=== PATIENT | male | born 1965 | race Caucasian/White ===

== ENCOUNTER → 2024-05-08 | Outpatient (CLI) | payer MEDICARE ==
[2024-05-08 12:01] LABS: Basophils % (A) 1 %; Eosinophils # (A) 0.2 k/uL (0-0.7); Eosinophils % (A) 5 %; HCT 45.7 % (39.0-53.0); HGB 14.8 gm/dL (13.0-17.5); Lymphocytes # (A) 0.9 k/uL (1.0-4.8); Lymphocytes % (A) 24 %; MCH 31.4 pg (25.0-35.0); MCHC 32.4 g/dL (31.0-37.0); MCV 96.8 fL (80.0-100.0); Monocytes # (A) 0.3 k/uL (0-1.0); Monocytes % (A) 8 %; Neutrophils # (A) 2.4 k/uL (1.3-7.7); Neutrophils % (A) 62 %; Platelet Count 305 k/uL (150-450); RBC 4.72 m/uL (4.30-5.90); RDW 12.5 % (11.5-15.5); WBC 3.8 k/uL (3.8-10.6)
== END | disposition home or self-care (01) ==
LOC: LABWHC1 10:58
PROVIDERS: ATTEND Family Medicine
DX: Z12.5 Encounter for screening for malignant neoplasm of prostate (principal); D72.819 Decreased white blood cell count, unspecified
CPT/HCPCS: 36415; 84153; 85025